=== PATIENT | female | born 1945 | race Caucasian/White ===

== ENCOUNTER 2017-01-12 05:27 | Day surgery (SDC) | payer OTHER, MEDICARE ==
[~2017-01-12] VITALS: Ht 160 cm; Wt 67.0 kg
[~2017-01-12 05:27] MED LIST: CIPRO500 MG PO; DIOVAN HCT 81 TABLET PO; FLOMAX0.4 MG PO; KLONOPIN0.5 M1 PO; LEXAPRO10 MG PO; PERCOCET 5/31 TABLET PO; VITAMIN B-2100 MG PO
[2017-01-12 06:35] VITALS: BP 162/77
[2017-01-12 10:56] VITALS: BP 130/61
[2017-01-12 11:53] VITALS: BP 137/56
[2017-01-12 12:53] VITALS: BP 133/59
== END 2017-01-12 13:08 | disposition home or self-care (01) ==
LOC: SDC 05:27
PROC: 0TF48ZZ Fragmentation in Left Kidney Pelvis, Via Natural or Artificial Opening Endoscopic (ICD-10-PCS; principal; 2017-01-12)
PROC: BT1F1ZZ Fluoroscopy of Left Kidney, Ureter and Bladder using Low Osmolar Contrast (ICD-10-PCS; principal; 2017-01-12)
PROC: 0T778DZ Dilation of Left Ureter with Intraluminal Device, Via Natural or Artificial Opening Endoscopic (ICD-10-PCS; principal; 2017-01-12)
DX: N13.2 Hydronephrosis with renal and ureteral calculous obstruction (principal); I10 Essential (primary) hypertension; K21.9 Gastro-esophageal reflux disease without esophagitis; Z85.51 Personal history of malignant neoplasm of bladder; Z87.891 Personal history of nicotine dependence; Z80.3 Family history of malignant neoplasm of breast; Z80.49 Family history of malignant neoplasm of other genital organs; Z82.49 Family history of ischemic heart disease and other diseases of the circulatory system
CPT/HCPCS: 74000; C1769; C1876; C1894; J0690; J1100; J1170; J1885; J2250; J2405; J3010

== ENCOUNTER 2017-04-29 07:24 | Day surgery (SDC) | payer OTHER, MEDICARE ==
[~2017-04-29] VITALS: Ht 160 cm; Wt 67.0 kg
[~2017-04-29 07:24] MED LIST changes: +ASPIRIN81 M2 PO
[2017-04-29 13:30] VITALS: BP 158/68
[2017-04-29 14:19] VITALS: BP 158/58
[2017-04-29 14:54] VITALS: BP 160/72
[2017-04-29 16:46] VITALS: BP 142/65
[2017-04-29 18:50] VITALS: BP 159/78
[2017-04-29 23:44] VITALS: BP 152/65
[2017-04-30 04:50] VITALS: BP 108/55
[2017-04-30 05:18] LABS: EOSINOPHIL (%) 4.9 % (0-5); EOSINOPHIL COUNT 0.4 K/uL (0-0.3); IMMATURE GRANULOCYTE (%) 0.3 % (0.0-0.7); INSTRUMENT ABS NEUTROPHIL CT 3.7 K/uL; LYMPHOCYTE COUNT 2.8 K/uL (1.0-2.8); MCH 29.1 PG (29.0-34.0); MCHC 33.3 G/DL (30.0-36.0); MCV 87.3 FL (83-99); MEAN PLAT.VOLUME 10.3 uM^3 (9.5-12.4); MONOCYTE (%) 8.9 % (3-12); MONOCYTE COUNT 0.7 K/uL (0-0.8); NEUTROPHIL (%) 49.1 % (45-76); NEUTROPHIL COUNT 3.7 K/uL (1.8-6.4); PLATELET COUNT 142 K/uL (156-360); RBC DIS.WIDTH-CV 13.9 % (11.8-14.6); RBC DIS.WIDTH-SD 44.8 % (39-53); RED BLOOD COUNT 3.78 M/uL (3.80-5.20); WHITE BLOOD COUNT 7.6 K/uL (4.1-10.2)
[2017-04-30 05:57] LABS: ANION GAP 8 MEQ/L (2-14); CHLORIDE 108 MEQ/L (99-109); GFR ESTIMATE (CALCULATED) 58 mL/min/; GLUCOSE 84 mg/dL (70-99); POTASSIUM 3.8 MEQ/L (3.7-5.4); SAMPLE HEMOLYSIS CHECK 0; SAMPLE ICTERIC CHECK 0; SAMPLE LIPEMIA CHECK 0; SODIUM 142 MEQ/L (136-147); UREA NITROGEN (BUN) 11 mg/dL (9-23)
[2017-04-30] MEDS ORDERED: ATORVASTATIN CA40 MG PO (08:05)
[2017-04-30] MEDS ORDERED: CLOPIDOGREL75 MG PO (08:05)
[2017-04-30 08:30] VITALS: BP 180/77
== END 2017-04-30 10:30 | disposition home or self-care (01) ==
LOC: CATH 07:24 → 2SOUTH 09:30 → 4EAST 09:30 → ENRESERV 10:00 → 4EAST 13:25
PROVIDERS: Internal Medicine Cardiovascular Disease
DX: I25.10 Atherosclerotic heart disease of native coronary artery without angina pectoris (principal); E78.00 Pure hypercholesterolemia, unspecified; I10 Essential (primary) hypertension; Z82.49 Family history of ischemic heart disease and other diseases of the circulatory system; Z87.891 Personal history of nicotine dependence; Z82.3 Family history of stroke; Z83.3 Family history of diabetes mellitus; Z80.49 Family history of malignant neoplasm of other genital organs; Z82.5 Family history of asthma and other chronic lower respiratory diseases
CPT/HCPCS: 80048; 85025; 85347; 93005; C1725; C1769; C1874; C1887; G0378; J0690; J1644; J2250; J3010